=== PATIENT | male | born 1990 | race Caucasian/White ===

== ENCOUNTER 2017-04-18 21:29 | Emergency (ER) | payer OTHER ==
[~2017-04-18] VITALS: Ht 175.3 cm; Wt 76.0 kg
[~2017-04-18 21:29] MED LIST: AMOXICILLIN500 MG PO; CLARITIN10 M2 PO; NO HOME MEDS
[2017-04-18 21:55] VITALS: BP 137/82
== END 2017-04-18 23:36 | disposition left against medical advice (07) | DRG 951 ==
LOC: ED 21:29 → LWOBS 23:36
DX: Z91.19 Patient's noncompliance with other medical treatment and regimen (principal)